=== PATIENT | female | born 1990 | race Caucasian/White ===

== ENCOUNTER 2018-09-10 13:04 | Emergency (ER) | payer BC ==
[2018-09-10 13:21] VITALS: BP 142/94
--- NOTE | 2018-09-10 13:34 | UC ---
Ear Complaint HPI - HPI Summary HPI Summary: 27-year-old female presents with 3 week history of intermittent bilateral ear pain. States she was diagnosed with flu approximately one month ago and it was noted at that time if she did have some fluid behind the eardrums. Associated with some mild nasal congestion. Denies fever, chills, ear drainage, hearing loss, tinnitus, vertigo, sore throat, or cough. - History of Current Complaint Chief Complaint: UCEar Stated Complaint: EAR PAIN Time Seen by Provider: 09/10/18 13:30 Hx Obtained From: Patient Hx Last Menstrual Period: 09/07/18 Pain Intensity: 3 - Allergies/Home Medications Allergies/Adverse Reactions: Allergies Allergy/AdvReac Type Severity Reaction Status Date / Time No Known Allergies Allergy Verified 09/10/18 13:21 Home Medications: Home Medications ALPRAZolam [Xanax] 0.25 mg PO Q6HR PRN 09/10/18 [History Confirmed 09/10/18] Oxymetazoline 0.05% NASAL SPR* [Afrin 0.05% NASAL SPRAY*] 1 spray NASAL Q12H PRN 09/10/18 [History Confirmed 09/10/18] Tri-Estarylla (Nf) [Tri-Estarylla] 1 tab PO DAILY 09/10/18 [History Confirmed ] PMH/Surg Hx/FS Hx/Imm Hx Previously Healthy: Yes - Denies significant PMH Psychological History: Anxiety - Surgical History Surgical History: None - Family History Known Family History: Positive: Non-Contributory - Social History Occupation: Employed Full-time Lives: Alone Alcohol Use: Occasionally Substance Use Type: None Smoking Status (MU): Never Smoked Tobacco Review of Systems All Other Systems Reviewed And Are Negative: Yes Constitutional: Negative: Fever, Chills Eyes: Negative: Drainage, Eye Redness ENT: Positive: Ear Ache, Sinus Congestion. Negative: Sore Throat, Nasal Discharge, Sinus Pain/Tenderness Respiratory: Negative: Cough Cardiovascular: Positive: Negative Gastrointestinal: Positive: Negative Genitourinary: Positive: Negative Musculoskeletal: Positive: Negative Neurological: Positive: Negative Is Patient Immunocompromised?: No Physical Exam - Summary Physical Exam Summary: GENERAL APPEARANCE: Well developed, well nourished, alert and cooperative, and appears to be in no acute distress. EYES: Conjunctiva clear. No drainage. Vision is grossly intact. EARS: External auditory canals and tympanic membranes clear, hearing grossly intact. NOSE: Mild nasal congestion. No nasal discharge. THROAT: Pharynx normal. No tonsilar swelling, exudate, or lesions. Uvula midline. Oral cavity normal. Teeth and gingiva in good general condition. NECK: Neck supple, non-tender without lymphadenopathy. CARDIAC: Normal S1 and S2. No S3, S4 or murmurs. Rhythm is regular. There is no peripheral edema, cyanosis or pallor. Extremities are warm and well perfused. Capillary refill is less than 2 seconds. Peripheral pulses intact. LUNGS: Clear to auscultation without rales, rhonchi, wheezing or diminished breath sounds. ABDOMEN: Positive bowel sounds. Soft, nondistended, nontender. No guarding or rebound. No masses or hepatosplenomegally. MUSKULOSKELETAL: ROM intact to all extremities. No joint erythema or tenderness. Normal muscular development. Normal gait. SKIN: Skin normal color, texture and turgor with no lesions or eruptions. Triage Information Reviewed: Yes Vital Signs: Initial Vital Signs Temp 98.3 F 09/10/18 13:17 Pulse 94 09/10/18 13:17 Resp 18 09/10/18 13:17 BP 142/94 09/10/18 13:17 Pulse Ox 99 09/10/18 13:17 Vital Signs Reviewed: Yes Ear Complaint Course/Dx - Course Course Of Treatment: 27-year-old female presents with 3 week history of intermittent bilateral ear pain. States she was diagnosed with flu approximately one month ago and it was noted at that time if she did have some fluid behind the eardrums. Associated with some mild nasal congestion. Denies fever, chills, ear drainage, hearing loss, tinnitus, vertigo, sore throat, or cough. Afebrile. Vital signs stable. Exam of the adult female in no acute distress with some mild nasal congestion , bilateral intact, opaque TMs with good cone of light, and otherwise unremarkable exam. Suspect that her symptoms are likely from eustachian tube dysfunction and I'm recommending that she start on fluticasone nasal spray 2 sprays each nostril daily. She is to follow-up with her primary care provider in one week if symptoms do not improve. Anticipatory guidance and warning symptoms were reviewed with the patient. Verbalizes understanding and agrees to plan of care. - Differential Dx/Diagnosis Differential Diagnosis/HQI/PQRI: Otitis Externa, Otitis Media, Perforated TM, Other - Serous otitis Provider Diagnosis: Eustachian tube dysfunction Discharge - Sign-Out/Discharge Documenting (check all that apply): Patient Departure All imaging exams completed and their final reports reviewed: No Studies - Discharge Plan Condition: Stable Disposition: HOME Prescriptions: Fluticasone NASAL SPRAY 50MCG* [Flonase NASAL SPRAY 50MCG*] 2 spray BOTH NARES DAILY #1 btl Patient Education Materials: Serous Otitis Media (ED) Referrals: Mee Aaron MD [Primary Care Provider] - 7 Days (If no improvement in symptoms. ) Additional Instructions: Your exam showed no evidence of an ear infection. I suspect your symptoms are from a condition called eustachian tube dysfunction. Start fluticasone (Flonase) nasal spray 2 sprays each nostril once daily. Take acetaminophen (Tylenol) or ibuprofen (Advil, Motrin) as needed for pain. Follow up with your primary care provider in 7 days if no improvement in symptoms. - Billing Disposition and Condition Condition: STABLE Disposition: Home
== END 2018-09-10 13:44 | disposition home or self-care (01) ==
LOC: UCEAST 13:04
DX: H69.93 Unspecified Eustachian tube disorder, bilateral (principal); F41.9 Anxiety disorder, unspecified; Z79.899 Other long term (current) drug therapy
CPT/HCPCS: 99202; G0463